=== PATIENT | female | born 1995 | race Two or more races ===

== ENCOUNTER → 2020-06-12 | Outpatient (CLI) | payer OTHER | END | disposition home or self-care (01) | LOC: PPH VACUNA 11:00 | DX: Z23 Encounter for immunization (principal) ==

== ENCOUNTER 2022-07-03 22:20 | Emergency (ER) | payer OTHER ==
[~2022-07-03] VITALS: Ht 175.3 cm; Wt 70.3 kg
== END 2022-07-03 23:22 | disposition home or self-care (01) ==
LOC: ER 22:20
DX: M25.50 Pain in unspecified joint (principal)